=== PATIENT | male | born 1985 | race African-American/Black ===

== ENCOUNTER 2020-05-18 12:30 | Emergency (ER) | payer SELFPAY ==
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
--- NOTE | 2020-05-18 13:56 | PCM.SN.2 ---
- Free Text/Narrative Note: EKG obtained at 1326 demonstrates normal sinus rhythm with a rate of [address] elevation of 2 mm in V2 and V3 some nonspecific diffuse T wave flattening as well. There are no reciprocal changes EKG is not felt to meet STEMI criteria.
[2020-05-18 14:12] LABS: BLOOD UREA NITROGEN,BUN 10 mg/dL (7.0-18.0); CHLORIDE,CL 102 mmol/L (98-107); GLUCOSE RANDOM 196 mg/dL (74-106); LIPASE 158 U/L (73-393); SODIUM,NA 136 mmol/L (136-148)
[2020-05-18 14:33] LABS: HEMOGLOBIN A1C 6.2 %
--- NOTE | 2020-05-18 15:01 | CR ---
INDICATION: Epigastric abdominal pain COMPARISON: None TECHNIQUE: Single-view chest radiograph FINDINGS: TUBES AND LINES: None. HEART AND MEDIASTINUM: The heart size is normal. The mediastinal contour appears normal for patient age. LUNGS AND PLEURAL SPACES: The lungs appear normal.The pleural spaces are unremarkable. OSSEOUS STRUCTURES: Age-appropriate appearance. No acute focal finding.No visible free subdiaphragmatic air IMPRESSION: No evidence of active pulmonary disease. Dictated by James Love MD @ May 18 2020 2:59PM Signed by Dr. James Love @ May 18 2020 2:59PM
--- NOTE | 2020-05-18 16:01 | PCM.SN.2 ---
- Free Text/Narrative Note: EKG obtained at 1551 interpreted by myself 1555 demonstrates sinus rhythm with a rate of 70 stable other findings including RSR prime in 1 as well as some ST elevation V2 through V5 without any reciprocal changes otherwise diffuse nonspecific T wave abnormalities. EKG does not meet STEMI criteria. Pt remains symptom free.
== END 2020-05-18 16:22 | disposition home or self-care (01) ==
LOC: MW.ED 12:30
DX: R10.13 Epigastric pain (principal)
CPT/HCPCS: 36415; 71045; 71045-26; 80053; 81003; 83036; 83690; 84484; 85025; 93005; 93010; 99283; 99284-25